=== PATIENT | male | born 1990 | race Two or more races ===

== ENCOUNTER 2018-11-23 15:09 | Emergency (ER) | payer OTHER ==
[2018-11-23] MEDS ORDERED: ONDANSETRON 4 MG/2 ML VIAL ONE (15:38)
[2018-11-23] MEDS ORDERED: ONDANSETRON 4 MG/2 ML VIAL IVP ONE (15:40)
[2018-11-23] MEDS ORDERED: NS 1,000 ML IV ONE ×2 (15:40→16:01)
--- NOTE | 2018-11-23 15:49 | EDPHY ---
H & P Time Seen by Provider: 11/23/18 15:22 HPI/ROS: Chief complaint. Nausea and vomiting HPI. 28-year-old male with nausea vomiting and diarrhea for 3 days. He thinks bad food exposure. Diarrhea every 10 min. No recent travel or other known exposure to Infectious Disease. Some crampy diffuse abdominal pain. Today lightheaded and feeling slight shortness of breath. As the patient took and bur here he did not want have a diarrhea episode in the car so he took 3 Imodium prior to arrival. No fever. No chest discomfort ROS 10 systems were reviewed and negative with the exception of the elements mentioned in the history of present illness Past Medical/Surgical History: Asthma, ear tubes, 1 testicle Social History: Single, nonsmoker, no alcohol Smoking Status: Never smoked Physical Exam: General Appearance: Alert well-developed male mild distress vital signs stable Eyes: Pupils equal and round no pallor or injection. ENT, mucous membranes are dry Respiratory: There are no retractions, lungs are clear to auscultation. Cardiovascular: Regular rate and rhythm. Gastrointestinal: Abdomen is soft with diffuse mild tenderness. Normal bowel sounds. No masses Neurological: Awake and alert, sensory and motor exams grossly normal. Skin: Warm and dry, no rashes. Musculoskeletal: Neck is supple nontender. Extremities symmetrical, full range of motion. Psychiatric: Patient is oriented X 3, there is no agitation. Constitutional: Initial Vital Signs Temperature (C) 36.6 C 11/23/18 15:13 Heart Rate 88 11/23/18 15:13 Respiratory Rate 16 11/23/18 15:13 Blood Pressure 130/108 H 11/23/18 15:13 O2 Sat (%) 98 11/23/18 15:13 O2 Delivery Mode Room Air Allergies/Adverse Reactions: egg [eggs] Allergy (Verified 11/23/18 15:19) ibuprofen Allergy (Verified 11/23/18 15:19) Home Medications: Medication Instructions Recorded Ondansetron Odt [Zofran Odt] 4 mg PO Q4PRN PRN #4 tab 11/23/18 Sertraline HCl 11/23/18 Medical Decision Making Procedures: IV normal saline with target of 2 L. Zofran for nausea ED Course/Re-evaluation: Re-evaluation at 5:45 p.m.. Patient is stable. He is taking oral fluids. He has been up to urinate after 2 L of saline. Patient and I discussed laboratory evaluation, treatment plan including criteria for return importance of follow- up and further evaluation. He expresses understanding and agreement Differential Diagnosis: Apparent vomiting and diarrhea illness. Considered dehydration, electrolyte abnormalities. No evidence for appendicitis - Data Points Laboratory Results: Laboratory Results 11/23/18 15:28 11/23/18 15:28 11/23/18 11/23/18 15:28 15:28 WBC 9.57 10^3/uL H 10^3/uL (3.80-9.50) RBC 5.44 10^6/uL 10^6/uL (4.40-6.38) Hgb 17.0 g/dL g/dL (13.7-17.5) Hct 50.8 % % (40.0-51.0) MCV 93.4 fL fL (81.5-99.8) MCH 31.3 pg pg (27.9-34.1) MCHC 33.5 g/dL g/dL (32.4-36.7) RDW 11.7 % % (11.5-15.2) Plt Count 258 10^3/uL 10^3/uL (150-400) MPV 11.4 fL fL (8.7-11.7) Neut % (Auto) 51.0 % % (39.3-74.2) Lymph % (Auto) 36.3 % % (15.0-45.0) [place] % (Auto) 7.4 % % (4.5-13.0) Eos % (Auto) 4.8 % % (0.6-7.6) Baso % (Auto) 0.3 % % (0.3-1.7) Nucleat RBC Rel Count 0.0 % % (0.0-0.2) Absolute Neuts (auto) 4.88 10^3/uL 10^3/uL (1.70-6.50) Absolute Lymphs (auto) 3.47 10^3/uL H 10^3/uL (1.00-3.00) Absolute Monos (auto) 0.71 10^3/uL 10^3/uL (0.30-0.80) Absolute Eos (auto) 0.46 10^3/uL H 10^3/uL (0.03-0.40) Absolute Basos (auto) 0.03 10^3/uL 10^3/uL (0.02-0.10) Absolute Nucleated RBC 0.00 10^3/uL 10^3/uL (0-0.01) Immature Gran % 0.2 % % (0.0-1.1) Immature Gran # 0.02 10^3/uL 10^3/uL (0.00-0.10) Sodium 141 mEq/L mEq/L (135-145) Potassium 4.3 mEq/L mEq/L (3.5-5.2) Chloride 108 mEq/L mEq/L (97-110) Carbon Dioxide 18 mEq/l L mEq/l (22-31) Anion Gap 15 mEq/L H mEq/L (6-14) BUN 6 mg/dL L mg/dL (7-23) Creatinine 0.9 mg/dL mg/dL (0.7-1.3) Estimated GFR > 60 Glucose 85 mg/dL mg/dL (70-100) Calcium 9.5 mg/dL mg/dL (8.5-10.4) Lipase 47 IU/L IU/L (23-300) Microbiology Results: MICROBIOLOGY 11/23/18 16:10 Stool Gastrointestinal Tract Panel (PCR) - Final No Organism Detected By Pcr Medications Given: Discontinued Medications Al Hydroxide/Mg Hydroxide (Maalox Susp) 30 ml PO ONCE ONE Stop: 11/23/18 16:53 Last Admin: 11/23/18 16:56 Dose: 30 ml Sodium Chloride (Ns) 1,000 mls @ 3,000 mls/hr IV ONCE ONE Stop: 11/23/18 15:59 Last Admin: 11/23/18 15:46 Dose: 1,000 mls Sodium Chloride (Ns) 1,000 mls @ 0 mls/hr IV EDNOW ONE; Wide Open PRN Reason: Protocol Stop: 11/23/18 16:02 Last Admin: 11/23/18 16:06 Dose: 1,000 mls Lidocaine (Lidocaine 2% Viscous) 15 ml PO ONCE ONE Stop: 11/23/18 16:53 Last Admin: 11/23/18 16:56 Dose: 15 ml Ondansetron HCl (Zofran) 4 mg IVP EDNOW ONE Stop: 11/23/18 15:41 Last Admin: 11/23/18 15:46 Dose: 4 mg Departure - Departure Disposition: Home, Routine, Self-Care Clinical Impression: Acute gastroenteritis Condition: Good Instructions: Gastroenteritis (ED) Additional Instructions: Frequent, small sips fluids. Gradual diet advancement Zofran if needed for nausea and vomiting Imodium as prescribed for diarrhea Return for worsening symptoms Recheck in 2 days if not improved Referrals: NONE *PRIMARY CARE P,. [Primary Care Provider] - As per Instructions Lawanda Brantley MD [Medical Doctor] - 2-3 days, if not improved Prescriptions: Ondansetron Odt [Zofran Odt] 4 mg PO Q4PRN PRN #4 tab PRN Reason: Nausea/Vomiting, Use 1st
[2018-11-23 16:08] LABS: PLATELET COUNT 258 10^3/uL (150-400)
[2018-11-23] MEDS ORDERED: MAG HYDROX/AL HYDROX/SIMETH 30 ML UDCUP PO ONE (16:52)
[2018-11-23] MEDS ORDERED: LIDOCAINE 2% VISCOUS 15 ML UDCUP PO ONE (16:52)
[2018-11-23] MEDS ORDERED: HYOSCYAMINE SULFATE 0.125 MG TAB ONE (16:54)
[2018-11-23 18:07] VITALS: BP 129/78
== END 2018-11-23 18:09 | disposition home or self-care (01) ==
DX: K52.9 Noninfective gastroenteritis and colitis, unspecified (principal)
CPT/HCPCS: 96374; J2405